=== PATIENT | female | born 2000 | race Two or more races ===

== ENCOUNTER 2025-04-01 16:33 | Emergency (ER) | payer OTHER ==
[~2025-04-01] VITALS: Ht 157.5 cm; Wt 64.4 kg
[2025-04-01 16:55] VITALS: BP 111/69
[2025-04-01] MEDS ORDERED: NEOM10DR11 LEFT EAR (17:29)
[2025-04-01 17:35] VITALS: BP 111/69; TEMP 98.1; O2SAT 97
== END 2025-04-01 17:36 | disposition home or self-care (01) ==
LOC: ER 16:41
DX: H60.92 Unspecified otitis externa, left ear (principal); R11.2 Nausea with vomiting, unspecified; R22.1 Localized swelling, mass and lump, neck; J45.909 Unspecified asthma, uncomplicated; Z98.84 Bariatric surgery status
CPT/HCPCS: A4606; A4663